=== PATIENT | male | born 1940 | race Caucasian/White ===

== ENCOUNTER 2017-08-11 07:39 | Day surgery (SDC) | payer OTHER ==
[2017-08-11] MEDS ORDERED: BUPIVACAINE 0.25% PF 10 ML VIAL ONE (08:21)
[2017-08-11] MEDS ORDERED: TETRACAINE HCL 0.5% 2ML OPTH ONE (08:21)
[2017-08-11] MEDS ORDERED: NA CHLORIDE 0.9% 500 ML ONE (08:21)
[2017-08-11] MEDS ORDERED: CYCLOPENTOLATE 1% OPTH 2 ML ONE (08:21)
[2017-08-11] MEDS ORDERED: LIDOCAINE 2% MPF 5 ML VIAL ONE (08:21)
[2017-08-11] MEDS ORDERED: PHENYLEPHRINE 10% OPTH 5ML ONE (08:22)
[2017-08-11] MEDS ORDERED: EPINEPHRINE/PF 1 MG/ML AMP ONE (08:27)
[2017-08-11] MEDS ORDERED: NS 0.9% VIAL 10 ML ONE (08:27)
[2017-08-11] MEDS ORDERED: DUOVISC 1 KIT OPTH ONE (08:28)
[2017-08-11] MEDS ORDERED: BALANCED SALT IRRIG PLAIN 500 ML BTL IRR ONE (08:28)
[2017-08-11] MEDS ORDERED: LIDOCAINE 1% MPF 2 ML AMPULE ONE (08:29)
[2017-08-11] MEDS ORDERED: MOXIFLOXACIN HCL 10 DROPS/ML **OR USE OPTH ONE (08:29)
[2017-08-11] MEDS ORDERED: CYCLOPENTOLATE 1% OPTH 2 ML OPTH ONE ×2 (08:33→08:38)
[2017-08-11] MEDS ORDERED: PHENYLEPHRINE 10% OPTH 5ML OPTH ONE ×2 (08:33→08:38)
[2017-08-11 08:40] VITALS: O2SAT 97
[2017-08-11] MEDS ORDERED: LIDOCAINE HCL/PF 3.5% OPTH GEL ONE (08:52)
[2017-08-11] MEDS ORDERED: BSS OPTHALMIC SOL 15 ML BOT OPTH ONE (09:14)
[2017-08-11] MEDS ORDERED: MIDAZOLAM HCL 2 MG/2 ML INJ ONE (10:06)
[2017-08-11] MEDS ORDERED: FENTANYL CITR 100 MCG/2 ML ONE (10:06)
--- NOTE | 2017-08-11 10:39 | P.BOP ---
Preoperative diagnosis: Nuclear sclerotic cataract OS Postoperative diagnosis: Same Primary procedure: Phacoemulsification with IOL OS Estimated blood loss: None Anesthesia: Local (Topical with anesthesia for cataract surgery) Complications: None Implants: ZCB00 +19.5 Transferred to: Other (Day surgery) Condition: Good
[2017-08-11 10:50] VITALS: BP 149/61; TEMP 97.9
--- NOTE | 2017-08-11 21:18 | OP ---
Date of Procedure: 08/11/2017 Surgeon: Edith Bush MD Anesthesiologist: Chadwick Benjamin CRNA, and Jayson Roman M.D. Preoperative Diagnosis: Nuclear sclerotic cataract, left eye. Operation Performed: Phacoemulsification with intraocular lens implant, left eye. Anesthesia: Per cataract surgery. Complications: None. Description Of Procedure: In the operating room the patient was prepped and draped in the usual ster ile fashion for ophthalmic surgery. A lid speculum was placed in the left eye. Two paracentesis sit es were made superiorly and inferiorly in the limbal cornea. Viscoat was placed in the anterior madhu shannan and a crescent blade was used to make a corneal groove and tunnel, and a keratome was used to ent er the anterior chamber. Provisc was placed in the anterior chamber and a 360 degree capsulotomy was performed with a cystitome. The lens was hydrodissected with BSS and rotated freely. The lens was removed with a stop and chop technique. 9.1 Phaco CDE was used to remove the lens. Residual cortex was removed with the irrigation and aspiration. Provisc was placed in the capsular bag. A ZCB00+ 19 .5 Diopter lens was placed in the capsular bag without complications. Irrigation and aspiration were used to remove residual viscoelastic. The paracentesis sites were hydrated with BSS. The wound and paracentesis sites were inspected and found to be watertight. Vigamox 0.07 cc was placed intracamer ally at the end of the procedure. The eye was irrigated with balanced salt solution. The eye was pa tched with a soft cotton patch and Leung metal shield. The patient was returned to day surgery in good condition. Comments: Akten was placed in the eye in Day Surgery and irrigated out of the eye with BSS in the OR . Preservative-free 1% lidocaine was placed in the anterior chamber. This was followed by 1:5000 ep inephrine. Both were placed prior to Viscoat. Discharge Instructions: Mr. Barraza is discharged to home in good condition and is to follow up with Jenifer Bush in the morning. SEAN/NOMI Voice ID: [id number] Report ID: [id number]
== END 2017-08-11 11:08 | disposition home or self-care (01) ==
LOC: OR 07:39
PROVIDERS: ATTEND Ophthalmology Retina Specialist
PROC: 08RK3JZ Replacement of Left Lens with Synthetic Substitute, Percutaneous Approach (ICD-10-PCS; principal; 2017-08-11 09:15)
DX: H25.12 Age-related nuclear cataract, left eye (principal); H43.812 Vitreous degeneration, left eye; H46.9 Unspecified optic neuritis; E11.9 Type 2 diabetes mellitus without complications; I10 Essential (primary) hypertension; K21.9 Gastro-esophageal reflux disease without esophagitis; Z88.0 Allergy status to penicillin; Z85.89 Personal history of malignant neoplasm of other organs and systems; Z90.49 Acquired absence of other specified parts of digestive tract; Z83.3 Family history of diabetes mellitus
CPT/HCPCS: 66984; 82962; J0171; J2001; J2250; J3010

== ENCOUNTER 2017-09-08 06:50 | Day surgery (SDC) | payer OTHER ==
[2017-09-08] MEDS ORDERED: BUPIVACAINE 0.25% PF 10 ML VIAL ONE (06:55)
[2017-09-08] MEDS ORDERED: CYCLOPENTOLATE 1% OPTH 2 ML ONE (06:55)
[2017-09-08] MEDS ORDERED: LIDOCAINE 2% MPF 5 ML VIAL ONE (06:55)
[2017-09-08] MEDS ORDERED: LIDOCAINE HCL/PF 3.5% OPTH GEL ONE (06:56)
[2017-09-08] MEDS ORDERED: PHENYLEPHRINE 10% OPTH 5ML ONE (06:56)
[2017-09-08] MEDS ORDERED: TETRACAINE HCL 0.5% 2ML OPTH ONE (06:56)
[2017-09-08] MEDS ORDERED: NA CHLORIDE 0.9% 500 ML ONE (06:56)
[2017-09-08] MEDS: PHENYLEPHRINE 10% OPTH 5ML OPTH ONE ×2 (07:10→07:15)
[2017-09-08] MEDS: CYCLOPENTOLATE 1% OPTH 2 ML OPTH ONE ×2 (07:10→07:15)
[2017-09-08 07:11] VITALS: O2SAT 97
[2017-09-08] MEDS ORDERED: NS 0.9% VIAL 10 ML ONE (07:59)
[2017-09-08] MEDS ORDERED: EPINEPHRINE/PF 1 MG/ML AMP ONE ×2 (07:59→08:03)
[2017-09-08] MEDS ORDERED: BALANCED SALT IRRIG PLAIN 500 ML BTL IRR ONE (08:00)
[2017-09-08] MEDS ORDERED: DUOVISC 1 KIT OPTH ONE (08:01)
[2017-09-08] MEDS ORDERED: MOXIFLOXACIN HCL 10 DROPS/ML **OR USE OPTH ONE (08:01)
[2017-09-08] MEDS ORDERED: LIDOCAINE 1% MPF 2 ML AMPULE ONE (08:01)
[2017-09-08] MEDS ORDERED: FENTANYL CITR 100 MCG/2 ML ONE (08:05)
[2017-09-08] MEDS ORDERED: MIDAZOLAM HCL 2 MG/2 ML INJ ONE (08:05)
[2017-09-08] MEDS ORDERED: BSS OPTHALMIC SOL 15 ML BOT OPTH ONE (08:12)
--- NOTE | 2017-09-08 09:04 | P.BOP ---
Preoperative diagnosis: Nuclear sclerotic cataract OD Postoperative diagnosis: Same Primary procedure: Phacoemulsification with IOL OD Estimated blood loss: None Anesthesia: Local (Topical with anesthesia for cataract surgery) Complications: None Implants: ZCB00 +19.5 Transferred to: Other (Day surgery) Condition: Good
[2017-09-08 09:15] VITALS: BP 146/71; TEMP 96.7
--- NOTE | 2017-09-08 20:25 | OP ---
Date of Procedure: 09/08/2017 Surgeon: Edith Bush MD Anesthesiologist: 1. Mika Alvarez CRNA. 2. Jayson Roman M.D. Preoperative Diagnosis: Nuclear sclerotic cataract, OD (right eye). Operation Performed: Phacoemulsification with intraocular lens implant, OD( right eye). Anesthesia: Per cataract surgery. Complications: None. Description Of Procedure: In the operating room the patient was prepped and draped in the usual sterile fashion for ophthalmic surgery. A lid speculum was placed in the OD. Two paracentesis sites were made superiorly and inferiorly in the limbal cornea. Viscoat was placed in the anterior chamber and a crescent blade was used to make a corneal groove and tunnel, and a keratome was used to enter the anterior chamber. Provisc was placed in the anterior chamber and a 360 degree capsulotomy was performed with a cystitome. The lens was hydrodissected with BSS and rotated freely. The lens was removed with a stop and chop technique. A 16.50 Phaco CDE was used to remove the lens. Residual cortex was removed with the irrigation and aspiration. Provisc was placed in the capsular bag. A ZCB00+ 19.5 lens was placed in the capsular bag without complications. Irrigation and aspiration was used to remove residual viscoelastic. The paracentesis sites were hydrated with BSS. The wound and paracentesis sites were inspected and found to be watertight. Vigamox 0.07 cc was placed intracamerally at the end of the procedure. The eye was irrigated with balanced salt solution. The eye was patched with a soft cotton patch and Leung metal shield. The patient was returned to day surgery in good condition. Comments: Akten was placed in the eye in Day Surgery and then irrigated out of the eye with BSS in the OR. Preservative-free 1% lidocaine was placed in the anterior chamber. This was followed by 1:5000 epinephrine. Both were placed prior to Viscoat. Discharge Instructions: Mr. Barraza is discharged to home in good condition and is to follow up with Dr. Bush in the morning. SEAN/NOMI Voice ID: [id number] Report ID: [id number] [facility]
== END 2017-09-08 09:35 | disposition home or self-care (01) ==
LOC: OR 06:50
PROVIDERS: ATTEND Ophthalmology Retina Specialist
PROC: 08RJ3JZ Replacement of Right Lens with Synthetic Substitute, Percutaneous Approach (ICD-10-PCS; principal; 2017-09-08 08:30)
DX: H25.11 Age-related nuclear cataract, right eye (principal); H46.9 Unspecified optic neuritis; H43.812 Vitreous degeneration, left eye; H47.20 Unspecified optic atrophy; E11.9 Type 2 diabetes mellitus without complications; K21.9 Gastro-esophageal reflux disease without esophagitis; N40.0 Benign prostatic hyperplasia without lower urinary tract symptoms; Z88.0 Allergy status to penicillin; Z85.89 Personal history of malignant neoplasm of other organs and systems; Z90.49 Acquired absence of other specified parts of digestive tract; Z83.3 Family history of diabetes mellitus
CPT/HCPCS: 66984; 82962; J0171 ×2; J2001; J2250; J3010

== ENCOUNTER 2023-10-27 21:28 | Inpatient (IN) | payer OTHER ==
--- OUTSIDE RECORDS SUMMARY | 2023-10-27 21:31 | XMS REPORT | Continuity of Care Document ---
Author Name Unknown Address [address] [facility] [address] [place] [address] [facility] Address [address] [facility] [address] [place] [address] Care Team Providers Care Bathhouse Attendant Name Role Phone RENNY_Morales Attending Clinician Unavailable Anais Lawson Attending Clinician [phone] Alphonso_Ayad Attending Clinician Unavailable A_Byrd Attending Clinician Unavailable RENNY_Morales Admitting Clinician Unavailable Alphonso_S Admitting Clinician Unavailable A_Byrd Admitting Clinician Unavailable Payers Payer Name Policy Type Policy Number Effective Date Expirati on Date Source [facility] (MEDICARE REPLACEMENT/[place]VANT[place] GE - PPO) [id number] [facility] (MEDICARE REPLACEMENT/ADVANTA GE - PPO) [id number] 2021 00:00:00 Problems Condition Name Condition Details Condition Category Status Onset Date Resolution Date Last Treatment Date Treating Clinician Comments Source Diabetes mellitus Diabetes Mellitus Problem Active 08-08 00:00: 00 [facility] Hypertensi ve disorder Hypertensi ve Disorder Problem Active 08-08 00:00: 00 [facility] Chronic constipati on Chronic Constipati on Problem Active 05-27 00:00: 00 [facility] Prostatiti s Prostatiti s Problem Active 16 00:00: 00 [facility] Type II diabetes mellitus uncontroll ed Type II Diabetes Mellitus Uncontroll ed Problem Active 08-24 00:00: 00 [facility] Anxiety about loss of memory Anxiety about Loss of Memory Problem Active 07-16 00:00: 00 [facility] Benign essential hypertensi on Benign Essential Hypertensi on Problem Active 07-16 00:00: 00 [facility] Acute low back pain Acute Low Back Pain Problem Active 08-12 00:00: 00 [facility] 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 Nutritiona l disorder Nutritiona l Disorder Problem Active [facility] Impotence Impotence Problem [facility] Depressive disorder Depressive Disorder Problem Active [facility] Peripheral nerve disease Peripheral Nerve Disease Problem Active [facility] Chronic esophagiti s Chronic Esophagiti s Problem Active [facility] Benign prostatic hyperplasi a Benign Prostatic Hyperplasi a Problem Active [facility] Difficulty swallowing Difficulty Swallowing Problem Active [facility] Chronic diarrhea Chronic Diarrhea Problem Active [facility] Elevated blood pressure Elevated Blood Pressure Problem Active [facility] Allergies, Adverse Reactions, Alerts Allergy Name Allergy Type Status Severity Reaction(s) Onset Date Inactive Date Treating Clinician Comments Source Januvia Allergy to substanc e Active Diarrhea [facility] PENICILL INS Allergy to substanc e Active [facility] Social History Smoking Status Start Date Stop Date Source Never Smoker [facility] Medications Ordered Medication Name Filled Medication Name Start Date Stop Date Current Medication? Ordering Clinician Indication Dosage Frequency Signature (SIG) Comments Components Source ascorbic acid (vitamin C) 500 mg tablet TAKE 4 TABLETS BY MOUTH EVERY 24 HOURS ascorbic acid (vitamin C) 500 mg tablet TAKE 4 TABLETS BY MOUTH EVERY 24 HOURS No ascorbic acid (vitamin C) 500 mg tablet TAKE 4 TABLETS BY MOUTH EVERY 24 HOURS [facility] finasteride 5 mg tablet TAKE 1 TABLET BY MOUTH EVERY DAY finasteride 5 mg tablet TAKE 1 TABLET BY MOUTH EVERY DAY No finasterid e 5 mg tablet TAKE 1 TABLET BY MOUTH EVERY DAY [facility] glipizide ER 2.5 mg tablet, extended release 24 hr Take 1 tablet every day by oral route for 30 days. glipizide ER 2.5 mg tablet, extended release 24 hr Take 1 tablet every day by oral route for 30 days. No 1 Q1D glipizide ER 2.5 mg tablet, extended release 24 hr Take 1 tablet every day by oral route for 30 days. [facility] lisinopril 10 mg tablet TAKE 1 TABLET BY MOUTH EVERY DAY lisinopril 10 mg tablet TAKE 1 TABLET BY MOUTH EVERY DAY No lisinopril 10 mg tablet TAKE 1 TABLET BY MOUTH EVERY DAY [facility] tamsulosin 0.4 mg capsule TAKE 1 CAPSULE BY MOUTH EVERY DAY tamsulosin 0.4 mg capsule TAKE 1 CAPSULE BY MOUTH EVERY DAY No tamsulosin 0.4 mg capsule TAKE 1 CAPSULE BY MOUTH EVERY DAY [facility] tamsulosin 0.4 mg capsule TAKE 1 CAPSULE BY MOUTH EVERY DAY tamsulosin 0.4 mg capsule TAKE 1 CAPSULE BY MOUTH EVERY DAY No tamsulosin 0.4 mg capsule TAKE 1 CAPSULE BY MOUTH EVERY DAY [facility] OneTouch Delica Plus Lancet 33 gauge USE DIRECTED OneTouch Delica Plus Lancet 33 gauge USE DIRECTED No OneTouch Delica Plus Lancet 33 gauge USE DIRECTED [facility] OneTouch Ultra Test strips TEST DIRECTED OneTouch Ultra Test strips TEST DIRECTED No OneTouch Ultra Test strips TEST DIRECTED [facility] OneTouch Ultra2 Meter TEST TWICE DAILY OneTouch Ultra2 Meter TEST TWICE DAILY No OneTouch Ultra2 Meter TEST TWICE DAILY [facility] sertraline 50 mg tablet Take 1 tablet every day by oral route for 90 days. sertraline 50 mg tablet Take 1 tablet every day by oral route for 90 days. No 1 Q1D sertraline 50 mg tablet Take 1 tablet every day by oral route for 90 days. [facility] famotidine 20 mg tablet Take 1 tablet twice a day by oral route for 90 days. famotidine 20 mg tablet Take 1 tablet twice a day by oral route for 90 days. No 1 BID famotidine 20 mg tablet Take 1 tablet twice a day by oral route for 90 days. [facility] Flonase Allergy Relief 50 mcg/actuati on nasal spray,suspe nsion [place] 1 spray every day by intranasal route for 90 days. Flonase Allergy Relief 50 mcg/actuati on nasal spray,suspe nsion [place] 1 spray every day by intranasal route for 90 days. No 1spray( s) Q1D Flonase Allergy Relief 50 mcg/actuat ion nasal spray,susp ension [place] 1 spray every day by intranasal route for 90 days. [facility] meclizine 25 mg tablet Take 1 tablet 3 times a day by oral route as needed, for dizzness. meclizine 25 mg tablet Take 1 tablet 3 times a day by oral route as needed, for dizzness. No 1 TID meclizine 25 mg tablet Take 1 tablet 3 times a day by oral route as needed, for dizzness. [facility] Medrol (Christian) 4 mg tablets in a dose pack Take 1 dose pk every day by oral route as directed. Medrol (Christian) 4 mg tablets in a dose pack Take 1 dose pk every day by oral route as directed. No 1dose pk(s) Q1D Medrol (Christian) 4 mg tablets in a dose pack Take 1 dose pk every day by oral route as directed. [facility] divalproex 250 mg tablet,ermelinda yed release Take 1 tablet every day by oral route for 90 days. divalproex 250 mg tablet,ermelinda yed release Take 1 tablet every day by oral route for 90 days. No 1 Q1D divalproex 250 mg tablet,del ayed release Take 1 tablet every day by oral route for 90 days. [facility] Vital Signs Vital Name Observation Time Observation Value Comments S ource BP Diastolic 2023-10-22 00:00:00 52 mm[Hg] [facility] BP Systolic 2023-10-22 00:00:00 110 mm[Hg] [facility] Body Weight 2023-10-22 00:00:00 2847 [oz_av] [facility] BP Diastolic 2023-06-26 00:00:00 54 mm[Hg] [facility] BP Systolic 2023-06-26 00:00:00 180 mm[Hg] [facility] Body Weight 2023-06-26 00:00:00 2880 [oz_av] [facility] Body Weight 2023-03-28 00:00:00 2965 [oz_av] [facility] Body Weight 2023-02-26 00:00:00 3018 [oz_av] [facility] BP Diastolic 2022-09-03 00:00:00 58 mm[Hg] [facility] BP Systolic 2022-09-03 00:00:00 165 mm[Hg] [facility] Body Weight 2022-09-03 00:00:00 3170.4 [oz_av] [facility] BP Diastolic 2022-06-06 00:00:00 55 mm[Hg] [facility] BP Systolic 2022-06-06 00:00:00 140 mm[Hg] [facility] Body Weight 2022-06-06 00:00:00 3184 [oz_av] [facility] BP Diastolic 2021-12-18 00:00:00 54 mm[Hg] [facility] BP Systolic 2021-12-18 00:00:00 150 mm[Hg] [facility] Body Weight 2021-12-18 00:00:00 3224 [oz_av] [facility] BP Diastolic 2021-10-24 00:00:00 73 mm[Hg] [facility] BP Systolic 2021-10-24 00:00:00 111 mm[Hg] [facility] Body Weight 2021-10-24 00:00:00 3456 [oz_av] [facility] BP Diastolic 2021-08-08 00:00:00 53 mm[Hg] [facility] BP Systolic 2021-08-08 00:00:00 119 mm[Hg] [facility] Body Weight 2021-08-08 00:00:00 3184 [oz_av] [facility] BP Diastolic 2021-06-25 00:00:00 76 mm[Hg] [facility] Height 2021-06-25 00:00:00 68 [in_i] [facility] BMI (Body Mass Index) 2021-06-25 00:00:00 28.7 kg/m2 [facility] BP Systolic 2021-06-25 00:00:00 132 mm[Hg] [facility] Body Weight 2021-06-25 00:00:00 3024 [oz_av] [facility] Height 2021-06-21 00:00:00 68 [in_i] [facility] BMI (Body Mass Index) 2021-06-21 00:00:00 30.4 kg/m2 [facility] Body Weight 2021-06-21 00:00:00 3200 [oz_av] [facility] BP Diastolic 2020-09-21 00:00:00 60 mm[Hg] [facility] Height 2020-09-21 00:00:00 68 [in_i] [facility] BMI (Body Mass Index) 2020-09-21 00:00:00 31.2 kg/m2 [facility] BP Systolic 2020-09-21 00:00:00 135 mm[Hg] [facility] Body Weight 2020-09-21 00:00:00 3284.8 [oz_av] [facility] BP Diastolic 2019-05-27 00:00:00 72 mm[Hg] [facility] Height 2019-05-27 00:00:00 68 [in_i] [facility] BMI (Body Mass Index) 2019-05-27 00:00:00 33.1 kg/m2 [facility] BP Systolic 2019-05-27 00:00:00 166 mm[Hg] [facility] Body Weight 2019-05-27 00:00:00 3488 [oz_av] [facility] BP Diastolic 2019-03-29 00:00:00 64 mm[Hg] [facility] Height 2019-03-29 00:00:00 68 [in_i] [facility] BMI (Body Mass Index) 2019-03-29 00:00:00 32.8 kg/m2 [facility] BP Systolic 2019-03-29 00:00:00 130 mm[Hg] [facility] Body Weight 2019-03-29 00:00:00 3446.4 [oz_av] [facility] BP Diastolic 2019-01-04 00:00:00 78 mm[Hg] [facility] Height 2019-01-04 00:00:00 68 [in_i] [facility] BMI (Body Mass Index) 2019-01-04 00:00:00 33 kg/m2 [facility] BP Systolic 2019-01-04 00:00:00 143 mm[Hg] [facility] Body Weight 2019-01-04 00:00:00 3472 [oz_av] [facility] BP Diastolic 2018-11-26 00:00:00 70 mm[Hg] [facility] Height 2018-11-26 00:00:00 68 [in_i] [facility] BMI (Body Mass Index) 2018-11-26 00:00:00 33 kg/m2 [facility] BP Systolic 2018-11-26 00:00:00 167 mm[Hg] [facility] Body Weight 2018-11-26 00:00:00 3472 [oz_av] [facility] BP Diastolic 2018-08-24 00:00:00 63 mm[Hg] [facility] Height 2018-08-24 00:00:00 68 [in_i] [facility] BMI (Body Mass Index) 2018-08-24 00:00:00 32.8 kg/m2 [facility] BP Systolic 2018-08-24 00:00:00 151 mm[Hg] [facility] Body Weight 2018-08-24 00:00:00 3456 [oz_av] [facility] BP Diastolic 2018-07-20 00:00:00 68 mm[Hg] [facility] Height 2018-07-20 00:00:00 68 [in_i] [facility] BMI (Body Mass Index) 2018-07-20 00:00:00 33.3 kg/m2 [facility] BP Systolic 2018-07-20 00:00:00 162 mm[Hg] [facility] Body Weight 2018-07-20 00:00:00 3504 [oz_av] [facility] BP Diastolic 2018-07-16 00:00:00 75 mm[Hg] [facility] Height 2018-07-16 00:00:00 68 [in_i] [facility] BMI (Body Mass Index) 2018-07-16 00:00:00 33.3 kg/m2 [facility] BP Systolic 2018-07-16 00:00:00 208 mm[Hg] [facility] Body Weight 2018-07-16 00:00:00 3504 [oz_av] [facility] Procedures Procedure Date / Time Performed Performing Clinician Source XR, lumbosacral spine, 2 or 3 view 2022-06-06 00:00:00 [facility] Cholecystectomy 2014-05-12 00:[facility] 1961-05-[facility] 00:00[facility]00 [facility] Encounters Start Date/Time End Date/Time Encounter Type Admission Type Attending Clinicians Care Facility Care Department Encounter ID Source 2023-10-22 00:00:00 2023-10-22 00:00:00 KERWIN Rizvi, RAKER BUFFING WHEEL, AIRCRAFT CAPTAIN-C: [address], [address] [place] [address] , Ph. [facility], Anais Lawson MSN, AIRCRAFT CAPTAIN-C [id number] 611 [facility] 2023-06-26 00:00:00 2023-06-26 00:00:00 KERWIN Rizvi, RAKER BUFFING WHEEL, AIRCRAFT CAPTAIN-C: Alexei Baker, [address], [address], [place] [address] , Ph. [facility], Anais Lawson, MSN, AIRCRAFT CAPTAIN-C [id number] [facility] 2023-04-17 00:00:00 2023-04-17 00:00:00 Outpatient SISSON_C [facility] [id number] [facility] 2023-04-03 00:00:00 2023-04-03 00:00:00 Outpatient SISSON_C [facility] [id number] [facility] 2023-03-28 00:00:00 2023-03-28 00:00:00 Anais Lawson, MSN, RAK[employer]ING [employer]EL, AIRCRAFT CAPTAIN-C: [address], [address], [place] [address] , Ph. [facility], Anais Lawson, MSN, AIRCRAFT CAPTAIN-C [id number] [facility] 2023-02-26 00:00:00 2023-02-26 00:00:00 Outpatient SISSON_C [facility] [id number] [facility] 2023-02-26 00:00:00 2023-02-26 00:00:00 Outpatient SISSON_C [facility] [id number] [facility] 2023-02-26 00:00:00 2023-02-26 00:00:00 Anais Lawson, MSN, RAK[employer], AIRCRAFT CAPTAIN-C: [address], [address], [place] [address] , Ph. [facility], Anais Lawson, MSN, AIRCRAFT CAPTAIN-C [id number] [facility] 2022-09-03 00:00:00 2022-09-03 00:00:00 Anais Renny, MSN, RAK[employer], AIRCRAFT CAPTAIN-C: [address], [place] [address] , Ph. [facility], Anais Lawson, MSN, AIRCRAFT CAPTAIN-C [id number] [facility] 2022-08-28 00:00:00 2022-08-28 00:00:00 Outpatient SISSON_C [facility] [id number] [facility] 2022-06-06 00:00:00 2022-06-06 00:00:00 Outpatient SISSON_C [facility] [id number] [facility] 2022-06-06 00:00:00 2022-06-06 00:00:00 Anais Lawson MSN, RAK[employer], AIRCRAFT CAPTAIN-C: [address], [place] [address] , Ph. [facility], Anais Lawson, MSN, AIRCRAFT CAPTAIN-C [id number] [facility] 2021-12-18 00:00:00 2021-12-18 00:00:00 Outpatient SISSON_C [facility] [id number] [facility] 2021-12-18 00:00:00 2021-12-18 00:00:00 Outpatient Anais Lawson [facility] [id number] 2021-12-18 00:00:00 2021-12-18 00:00:00 Anais Lawson, MSN, RAK[employer] BU[employer]ING [employer]EL, AIRCRAFT CAPTAIN-C: [address], [address], [place] [address] , Ph. [facility], Anais Lawson, MSN, AIRCRAFT CAPTAIN-C [id number] [facility] 2021-10-24 04:55:00 2021-10-24 04:55:00 Outpatient SISSON_C [facility] [id number] [facility] 2021-10-24 00:00:00 2021-10-24 00:00:00 Outpatient Anais Lawson [facility] [id number] 2021-10-24 00:00:00 2021-10-24 00:00:00 Anias Lawson, MSN, RAK[employer] BU[employer]ING WHEEL, AIRCRAFT CAPTAIN-C: [address]ac [address], [place] [address] , Ph. [facility], Anais Lawson MSN, AIRCRAFT CAPTAIN-C [id number] [facility] 2021-08-28 10:05:00 2021-08-28 10:05:00 Outpatient SISSON_C [facility] [id number] [facility] 2021-08-08 12:46:00 2021-08-08 12:46:00 Outpatient SISSON_C [facility] [id number] [facility] 2021-08-08 00:00:00 2021-08-08 00:00:00 Outpatient Anais Lawson [facility] [id number] 2021-08-08 00:00:00 2021-08-08 00:00:00 Anais Lawson, MSN, RAK[employer] BUFFING WHEEL, AIRCRAFT CAPTAIN-C: [address], [place] [address] , Ph. [facility], Anais Lawson, MSN, AIRCRAFT CAPTAIN-C [id number] [facility] 2021-07-03 03:55:00 2021-07-03 03:55:00 [facility] 022 [facility] 2021-06-25 00:00:00 2021-06-25 00:00:00 Concetta Werner MD: [address] [facility] [address], [place] [address] , Ph. Zuniga_S [facility] [address] [facility] 2021-06-21 00:00:00 2021-06-21 00:00:00 Concetta Werner MD: [address] [facility] [address] [address] , Ph. A_Byrd [facility] [address] [facility] 2021-04-04 12:12:00 2021-04-04 12:12:00 Outpatient SISSON_C [facility] [id number] [facility] 2021-04-03 04:56:00 2021-04-03 04:56:00 Outpatient SISSON_C [facility] [id number] [facility] 2021-04-02 10:28:00 2021-04-02 10:28:00 Outpatient SISSON_C [facility] [id number] [facility] 2021-04-02 00:00:00 2021-04-02 00:00:00 Anais Lawson, KERWIN, RAKER BUFFING WHEEL, AIRCRAFT CAPTAIN-C: [address], [address], [place] [address] , Ph. [facility], KERWIN Rizvi, AIRCRAFT CAPTAIN-C [id number] [facility] 2020-09-22 12:27:00 2020-09-22 12:27:00 Outpatient A_Byadina [facility] 14 [facility] 2020-09-21 00:00:00 2020-09-21 00:00:00 Lucio Amin MD: [address], [place] [address] , Ph. ARoyer [facility] [address] [facility] 2020-03-29 02:27:00 2020-03-29 02:27:00 Outpatient A_Byadina [facility] [id number] [facility] 2019-05-27 00:00:00 2019-05-27 00:00:00 Lucio Amin MD: [address], [place] [address] , Ph. ARoyer [facility] [address] [facility] 2019-03-29 00:00:00 2019-03-29 00:00:00 Amy Bolaños, CHIEF DRAFTER: [address], [place] [address] , Ph. [facility] [address] [facility] 2019-01-04 00:00:00 2019-01-04 00:00:00 Amy Bolaños, CHIEF DRAFTER: [address], [address], [place] [address] , Ph. [facility] [address] [facility] 2018-11-26 00:00:00 2018-11-26 00:00:00 Lucio Amin MD: [address], [address], [place] [address] , Ph. [facility] 7[address] [facility] 2018-08-24 00:00:00 2018-08-24 00:00:00 Lucio Amin MD: [address], [address], [place] [address] , Ph. [facility] 04[address] [facility] 2018-07-20 00:00:00 2018-07-20 00:00:00 Lucio Amin MD: [address], [address], [place] [address] , Ph. [facility] 03[address] [facility] 2018-07-16 00:00:00 2018-07-16 00:00:00 Lucio Amin MD: [address], [address], [place] [address] , Ph. [facility] [address] [facility] Results Test Description Test Time Test Comments Results Result Co mments Source [facility] - [id number] 07:50:00* Test Item Value Reference Range Interpretation Comme nts Color of Urine by Auto (test code = 41239-6) yellow Appearance of Urine (test code = 5767-9) SL cloudy clear A Glucose [Presence] in Urine by Automated test strip (test code = 62082-0) =4+ (1000 negative Bilirubin.total [Mass/volume] in Urine (test code = 1978-6) negative negative Ketones [Mass/volume] in Urine by Automated test strip (test code = 47957-2) trace negative Specific gravity of Urine by Automated test strip (test code = 24626-0) 1.019 1.003-1.030 blood urine (test code = blood urine) =3 negative H pH of Urine (test code = 2756-5) 5.500 5-9 protein urine (UA) (test code = protein urine (UA)) =1+ (50 negative H Urobilinogen [Presence] in Urine (test code = 05700-1) normal 0.2-1.0 Nitrite [Presence] in Urine by Test strip (test code = 5802-4) negative negative Leukocyte esterase [Presence] in Urine by Automated test strip (test code = 71127-9) =1 negative H Erythrocytes [#/volume] in Urine by Automated count (test code = 798-9) =15-19 0-5 H Leukocytes [#/area] in Urine sediment by Automated count (test code = 89038-8) =11-14 0-5 H Epithelial cells [Presence] in Urine sediment by Light microscopy (test code = 61871-2) =1-5 0-5 Bacteria identified in Urine by Culture (test code = 630-4) none detected none detect Casts [#/area] in Urine sediment by Automated count (test code = 04876-3) =6-10 none detect H urine culture added? (test code = urine culture added?) yes Crystals [Presence] in Urine by Automated (test code = 74345-6) ammonium biurate 1 none detect A Yeast [Presence] in Urine by Automated (test code = 82993-6) none seen none detect [facility][id number] 06:05:00* Test Item Value Reference Range Interpretation Comme nts prothrombin time (test code = prothrombin time) 9.9 seconds 10.3-12.3 L INR in Blood by Coagulation assay (test code = 76617-1) <0.94 [facility] A[facility]c [Mass/volume] in [id number] 06:05:00 * Test Item Value Reference Range Interpretation Comme nts Hemoglobin A1c [Mass/volume] in Blood (test code = 39152-3) 8.5 % 4.0-6.0 H [facility] Group[facility]/[id number] 06:05:00* Test Item Value Reference Range Interpretation Comme nts prothrombin time (test code = prothrombin time) 9.9 seconds 10.3-12.3 L INR in Blood by Coagulation assay (test code = 94981-0) <0.94 [facility] A1c [Mass/volume] in [id number] 06:05:00 * Test Item Value Reference Range Interpretation Comme nts Hemoglobin A1c [Mass/volume] in Blood (test code = 01764-6) 8.5 % 4.0-6.0 [facility] W Auto Differential panel - [id number] 10:00:00 * Test Item Value Reference Range Interpretation Comme nts white blood count (test code = white blood count) 5.8 K/uL 4.0-12.3 red blood count (test code = red blood count) 4.53 M/uL 3.80-5.80 hemoglobin (test code = hemoglobin) 13.2 g/dL 11.7-17.2 hematocrit (test code = hematocrit) 42.9 % 35.0-51.0 Erythrocyte mean corpuscular volume [Entitic volume] (test code = 07491-7) 94.7 fL 83-100 Erythrocyte mean corpuscular hemoglobin [Entitic mass] (test code = 51163-5) 29.1 pg 26.8-33.4 mean corpuscular HGB conc (t est code = mean corpuscular HGB conc) 30.8 g/dL 30-35 red cell distribution width (test code = red cell distribution width) 13.4 % 12.0-14.0 platelet count (test code = platelet count) 126 K/uL 175-450 L mean platelet volume (test c ode = mean platelet volume) 12.9 fL 9.4-12.6 H Neutrophils.segmented/100 leukocytes in Blood (test code = 27935-4) 68.9 % 44.7-82.4 Ig% (test code = Ig%) 0.3 % 0.0-0.4 lymphocyte% (test code = lymphocyte%) 19.6 % 10.0-50.0 Monocytes/100 leukocytes in Blood by Automated count (test code = 5905-5) 8.1 % 3.9-13.4 Eosinophils/100 leukocytes i n Blood by Automated count (test code = 713-8) 2.6 % 0.0-6.4 Basophils/100 leukocytes in Unspecified specimen (test code = 08056-0) 0.5 % 0.2-1.2 absolute neutrophil count (t est code = absolute neutrophil count) 3.98 K/uL 1.78-5.38 Ig# (test code = Ig#) 0.0 K/uL 0.0-0.03 Lymphocytes [#/volume] in Unspecified specimen by Automated count (test code = 25907-1) 1.1 K/uL 1.32-3.57 L mono # (test code = mono #) 0.47 K/uL 0.30-0.82 eos # (test code = eos #) 0.15 K/uL 0.04-0.54 basophil # (test code = baso oliver #) 0.03 K/uL 0.01-0.08 NRBC% (test code = NRBC%) 0 /100 WBC 0-0.2 NRBC# (test code = NRBC#) 0 K/uL [facility], [id number] 10:00:00 NeutrophilsBandLymphocyteAtypical LymphMonocyteEosinophilBasophilMyelocytePlatelet EstimatePlateletMorphologyToxic GranulationMaSinging River GulfportMicroalbumin [Mass/volume] in [id number] 10:00:00* Test Item Value Reference Range Interpretation Comme nts microalbumin random (test co de = microalbumin random) 83.9 mg/L 0-20 H [facility] MississippiHemoglobin A1c [Mass/volume] in [id number] 10:00:00 * Test Item Value Reference Range Interpretation Comme nts Hemoglobin A1c in Blood ([facility] t code = 50389-7) 7.5 % 4.0-6.0 H [facility] MississippiComprehensive metabolic 2000 panel - Serum or Plasma 2018-11-23 10:00:00* Test Item Value Reference Range Interpretation Comme nts Glucose [Mass/volume] in Ser um or Plasma (test code = 2345-7) 286 mg/dL 82-115 H Urea nitrogen [Mass/volume] in Serum or Plasma (test code = 3094-0) 21 mg/dL 8-23 Osmolality of Serum or Plasm a (test code = 2692-2) 293 280-300 creatinine (test code = creatinine) 1.5 mg/dL 0.70-1.20 H glomerular filtration rate ( test code = glomerular filtration rate) 45.03 L Urea nitrogen/Creatinine [Ma ss Ratio] in Serum or Plasma (test code = 3097-3) 14.0 12-20 sodium level (test code = so dium level) 140 mmol/L 135-145 potassium level (test code = potassium level) 4.6 mmol/L 3.5-5.2 chloride level (test code = chloride level) 108 mmol/L 98-108 CO2 (test code = CO2) 21 mmol/L 21-32 anion gap (test code = anion gap) 15.6 mEq/L 12-20 calcium level (test code = c alcium level) 9.9 mg/dL 8.8-10.2 total protein (test code = t otal protein) 7.0 g/dL 6.6-8.7 albumin (test code = albumin) 4.1 g/dL 3.5-5.2 globulin (test code = globulin) 2.9 gm/dL A/G ratio (test code = A/G ratio) 1.4 >1.0 bilirubin,total (test code = bilirubin,total) 0.4 mg/dL 0.0-1.2 AST/SGOT (test code = AST/SGOT) 17 U/L 15-40 Alanine aminotransferase [Enzymatic activity/volume] in Serum or Plasma (test code = 1742-6) 13 U/L 0-41 Alkaline phosphatase [Enzyma tic activity/volume] in Serum or Plasma (test code = 6768-6) 80 U/L 40-130 [facility] MississippiLip[facility] 1996 panel - Serum or [id number] 10:00:00* Test Item Value Reference Range Interpretation Comme nts cholesterol level (test code = cholesterol level) 168 mg/dL 150-200 triglycerides level (test co de = triglycerides level) 147 mg/dL <150 HDL cholesterol (test code = HDL cholesterol) 33 mg/dL >55 L LDL cholesterol direct (test code = LDL cholesterol direct) 122 mg/dL <100 H cholesterol risk ratio (test code = cholesterol risk ratio) 5.090 [facility] MississippiHemoglobin A1c [Mass/volume] in [id number] 08:34:00 * Test Item Value Reference Range Interpretation Comme nts Hemoglobin A1c in Blood (stephenie t code = 40621-4) 7.8 % 4.0-6.0 H [facility] MississippiClostridium difficile toxin A+B [Presence] in Stool 2018-07-18 11:47:00ResultsMaSinging River GulfportCBC W Auto Differential panel - [id number] 10:04:00* Test Item Value Reference Range Interpretation Comme nts white blood count (test code = white blood count) 5.5 K/uL 4.0-12.3 red blood count (test code = red blood count) 4.11 M/uL 3.80-5.80 Hemoglobin [Mass/volume] in Blood (test code = 718-7) 12.8 g/dL 11.67-17.22 hematocrit (test code = hematocrit) 38.9 % 35.0-51.0 Erythrocyte mean corpuscular volume [Entitic volume] (test code = 22537-5) 94.5 fL 78-96 Erythrocyte mean corpuscular hemoglobin [Entitic mass] (test code = 25112-0) 31.1 pg 26.8-33.4 mean corpuscular HGB conc (t est code = mean corpuscular HGB conc) 32.9 g/dL 32.3-36.7 red cell distribution width (test code = red cell distribution width) 13.1 % 11.6-15.4 Platelets [#/volume] in Bloo d (test code = 64724-1) 124 K/uL 115-328 Platelet mean volume [Entiti c volume] in Blood (test code = 95720-3) 10.2 fL 8.4-11.8 Neutrophils.band form/100 leukocytes in Blood (test code = 94620-0) 66.3 % 44.7-82.4 Lymphocytes/100 leukocytes i n Body fluid (test code = 90958-6) 21.2 % 10.0-50.0 Monocytes/100 leukocytes in Blood by Automated count (test code = 5905-5) 8.0 % 3.9-13.4 Eosinophils/100 leukocytes i n Blood by Automated count (test code = 713-8) 3.4 % 0.0-6.43 Basophils/100 leukocytes in Blood by Automated count (test code = 706-2) 1.0 % 0.0-0.72 [facility]ifferent[facility] panel, [id number] 10:04:00 NeutrophilsBandLymphocyteAtypical LymphMonocyteEosinophilBasophilMetamyelocyteNucleated Red Blood CellPlatelet EstimatePlatelet MorphologyPoikilocytosisStomatocyteRouleauMaSinging River GulfportComprehensive metabolic 2000 panel - Serum or [id number] 10:04:00* Test Item Value Reference Range Interpretation Comme nts Glucose [Mass/volume] in Ser um or Plasma (test code = 2345-7) 139 mg/dL 82-115 H Urea nitrogen [Mass/volume] in Serum or Plasma (test code = 3094-0) 18 mg/dL 8-23 Osmolality of Serum or Plasm a (test code = 2692-2) 287 280-300 creatinine (test code = creatinine) 1.4 mg/dL 0.70-1.20 H glomerular filtration rate ( test code = glomerular filtration rate) 48.89 L Urea nitrogen/Creatinine [Ma ss Ratio] in Serum or Plasma (test code = 3097-3) 12.9 12-20 sodium level (test code = so dium level) 142 mmol/L 135-145 potassium level (test code = potassium level) 4.5 mmol/L 3.5-5.2 chloride level (test code = chloride level) 108 mmol/L 98-108 CO2 (test code = CO2) 23 mmol/L 21-32 anion gap (test code = anion gap) 15.5 mEq/L 12-20 calcium level (test code = c alcium level) 10.0 mg/dL 8.8-10.2 total protein (test code = t otal protein) 6.9 g/dL 6.6-8.7 albumin (test code = albumin) 4.3 g/dL 3.5-5.2 globulin (test code = globulin) 2.6 gm/dL A/G ratio (test code = A/G ratio) 1.7 >1.0 bilirubin,total (test code = bilirubin,total) 0.4 mg/dL 0.0-1.2 AST/SGOT (test code = AST/SGOT) 13 U/L 15-40 L Alanine aminotransferase [Enzymatic activity/volume] in Serum or Plasma (test code = 1742-6) 18 U/L 0-41 Alkaline phosphatase [Enzyma tic activity/volume] in Serum or Plasma (test code = 6768-6) 73 U/L 40-130 [facility] MississippiHemoglobin A1c [Mass/volume] in [id number] 10:04:00 * Test Item Value Reference Range Interpretation Comme nts Hemoglobin A1c in Blood (stephenie t code = 04129-4) 6.1 % 4.0-6.0 H [facility]
[2023-10-27] MEDS ORDERED: MORPHINE 2 MG/ML SYR ONE (22:00)
[2023-10-27] MEDS ORDERED: ONDANSETRON 4 MG/2 ML VIAL ONE (22:00)
[2023-10-27] MEDS ORDERED: FAMOTIDINE 20 MG/2 ML VIAL IV ONE (22:01)
[2023-10-27] MEDS ORDERED: NA CHLORIDE 0.9% 2,000 ML ONE (22:01)
[2023-10-27 22:19] LABS: Absolute Eosinophils 0.1 K/uL (0-0.5); Absolute Lymphocytes (CBC) 1.2 K/uL (0.7-4.9); Absolute Monocytes 0.5 K/uL (0.1-1.3); Absolute Neutrophil 3.6 K/uL (1.8-8.0); Basophils % 0.5 % (0-1.3); Eosinophils % 1.7 % (0-4.4); Hematocrit 38.5 % (39.6-49.0); Hemoglobin 13.1 g/dL (13.6-17.9); Lymphocytes % 22.8 % (15.3-44.8); MCH 31.1 pg (27.0-35.0); MCHC 34.1 g/dL (32.0-36.0); MCV 91.3 fL (80-100); MPV 9.7 fL (7.6-11.3); Monocytes % 8.9 % (3.3-12.3); Neutrophils % 66.1 % (41.7-73.7); Platelets 117 thou/uL (152-406); RBC Red Blood Cell Count 4.21 M/uL (4.33-5.43); Red Cell Distribution Width 14.9 % (12.1-15.2)
[2023-10-27 22:33] LABS: ALT/SGPT 102 U/L (16-61); AST/SGOT 36 U/L (15-37); Albumin 3.2 g/dL (3.4-5.0); Albumin/Globulin Ratio 1.2 (1.1-1.8); Alkaline Phosphatase 117 U/L (45-117); Anion Gap 6.4 mEq/L (5.0-15.0); BUN Blood Urea Nitrogen 26 mg/dL (7-18); Bicarbonate 29 mEq/L (21-32); Bilirubin Total 0.6 mg/dL (0.2-1.0); Globulin 2.7 g/dL (2.3-3.5); Glomerular Filtration Rate 46 ml/min (=/>90); Glucose Level 237 mg/dL (74-106); Lipase 30 U/L (13-75); NT PRO-BNP 231 pg/mL (<450); Potassium 4.4 mEq/L (3.5-5.1); Protein, Total 5.9 g/dL (6.4-8.2); Sodium Level 142 mEq/L (136-145); Troponin High Sensitivity 22.9 pg/mL (<58.9)
[2023-10-27 22:35] LABS: C-Reactive Protein < 2.90 mg/L (<3.00)
--- NOTE | 2023-10-28 00:54 | ER ---
Nurse's Notes [facility] Name: Wade Barraza Age: 83 yrs Sex: Male : 1940 Arrival Date: 10/27/2023 Time: 21:28 Bed 6 Private MD: Diagnosis: Noninfective gastroenteritis and colitis, unspecified;Balance disorder, unsteady gait, profuse diarrhea, moderate dehydration, Presentation: 10/26 21:43 Chief complaint: Patient states: having diarrhea for a couple of days now \T\ loss of rg5 appetite. Coronavirus screen: Vaccine status: Patient reports receiving the 1st dose of the Covid vaccine. Ebola Screen: Patient negative for fever greater than or equal to 101.5 degrees Fahrenheit, and additional compatible Ebola Virus Disease symptoms Patient denies travel to an Ebola-affected area in the 21 days before illness onset. Initial Sepsis Screen: Does the patient meet any 2 criteria? No. Patient's initial sepsis screen is negative. Does the patient have a suspected source of infection? No. Patient's initial sepsis screen is negative. Risk Assessment: Do you want to hurt yourself or someone else? Patient reports no desire to harm self or others. Onset of symptoms was October 25, 2023. 21:43 Method Of Arrival: EMS: [facility] rg5 21:43 Acuity: ISSAC 3 rg5 Triage Assessment: 21:53 General: Appears in no apparent distress. comfortable, Behavior is calm, cooperative, rg5 appropriate for age. Pain: Denies pain. EENT: No deficits noted. Reports decreased hearing. Neuro: No deficits noted. Cardiovascular: Patient's skin is warm and dry. Rhythm is sinus bradycardia Chest pain is denied. Respiratory: Airway is patent Breath sounds are clear bilaterally. GI: Abd is soft and non tender X 4 quads. Reports diarrhea. : No signs and/or symptoms were reported regarding the genitourinary system. Derm: No signs and/or symptoms reported regarding the dermatologic system. Musculoskeletal: No signs and/or symptoms reported regarding the musculoskeletal system. Historical: - Allergies: 21:52 No Known Allergies; rg5 - Immunization history:: Adult Immunizations . - Infectious Disease History:: Denies. - Social history:: Smoking status: Patient denies any tobacco usage or history of. - Family history:: not pertinent. Screenin:19 [facility] ED Fall Risk Assessment (Adult) History of falling in the last 3 months, rg5 including since admission Yes- physiologic fall (2 pts) Confusion or Disorientation No (0 pts) Intoxicated or Sedated No (0 pts) Impaired Gait No (0 pts) Mobility Assist Device Used Yes (1 pt) Altered Elimination No (0 pt) Score/Fall Risk Level 3 or more points = High Risk Oriented to surroundings, Maintained a safe environment, Educated pt \T\ family on fall prevention, incl call for assistance when getting out of bed, Provided non-skid footwear, Hourly rounding (assess needs \T\ fall precautionary measures) done. Abuse screen: Denies threats or abuse. Nutritional screening: No deficits noted. Tuberculosis screening: No symptoms or risk factors identified. Assessment: 22:17 General: Appears in no apparent distress. comfortable. rg5 22:17 Pain: Denies pain. Neuro: Reports dizziness. Cardiovascular: Rhythm is sinus rg5 bradycardia. Respiratory: Airway is patent. GI: Abdomen is flat, Abd is soft and non tender Reports diarrhea. : No signs and/or symptoms were reported regarding the genitourinary system. EENT: Reports decreased hearing. Derm: No signs and/or symptoms reported regarding the dermatologic system. Musculoskeletal: No signs and/or symptoms reported regarding the musculoskeletal system. 23:52 Reassessment: Patient and/or family updated on plan of care and expected duration. Pain rg5 level reassessed. Patient is alert, oriented x 3, equal unlabored respirations, skin warm/dry/pink. 10/27 03:13 Reassessment: Patient and/or family updated on plan of care and expected duration. Pain rg5 level reassessed. Patient is alert, oriented x 3, equal unlabored respirations, skin warm/dry/pink. Patient denies pain at this time. Neuro: Reports dizziness. Vital Signs: 10/26 21:43 BP 144 / 64; Pulse 47; Resp 18; Temp 97.9; Pulse Ox 99% on R/A; Weight 80.29 kg (M); rg5 Height 5 ft. 8 in. (R); Pain 0/10; 21:56 BP 144 / 64; Pulse 47; Resp 18; Temp 97.9; Pulse Ox 99% on R/A; Pain 0/10; rg5 23:52 BP 167 / 72; Pulse 44; Resp 19; Pulse Ox 98% ; Pain 0/10; rg5 10/27 01:22 BP 149 / 50; Pulse 44; Resp 18; Temp 98; Pulse Ox 98% on R/A; Pain 0/10; rg5 01:29 BP 149 / 50; Pulse 44; Resp 18; Temp 98; Pulse Ox 98% ; Pain 0/10; rg5 03:01 BP 148 / 73; Pulse 44; Resp 18; Temp 97.9; Pulse Ox 96% on R/A; Pain 0/10; rg5 10/26 21:43 Body Mass Index 26.91 (80.29 kg, 172.72 cm) rg5 10/26 21:43 Pain Scale: Adult rg5 21:56 Pain Scale: Adult rg5 23:52 Pain Scale: Adult rg5 10/27 01:22 Pain Scale: Adult rg5 01:29 Pain Scale: Adult rg5 03:01 Pain Scale: Adult rg5 Vitals: 01:29 Cardiac Rhythm Assessment Sinus bianca. rg5 [place] Coma Score: 10/26 23:52 Eye Response: spontaneous(4). Motor Response: obeys commands(6). Verbal Response: rg5 oriented(5). Total: 15. 10/27 00:30 Eye Response: spontaneous(4). Motor Response: obeys commands(6). Verbal Response: sp4 oriented(5). Total: 15. 01:29 Eye Response: spontaneous(4). Motor Response: obeys commands(6). Verbal Response: rg5 oriented(5). Total: 15. ED Course: 10/26 21:42 Patient arrived in ED. ty 21:43 Mauri Posey MD is Attending Physician. sp4 21:43 Eh Ruiz RN is Primary Nurse. rg5 21:51 Triage completed. rg5 21:56 Arm band placed on right wrist. rg5 22:19 Patient has correct armband on for positive identification. Fall risk band placed. Side rg5 rails up X2. Adult w/ patient. Provided Education on:. 22:19 Inserted saline lock: 20 gauge in right antecubital area, using aseptic technique. rg5 23:51 CT Head C Spine In Process Unspecified. EDMS 23:51 CT Chest, Abdomen, Pelvis - W/Contrast In Process Unspecified. EDMS 0618 00:52 Agustín Le MD is Hospitalizing Provider. sp4 03:13 No provider procedures requiring assistance completed. Maintain EMS IV. Flushed right rg5 with 5 ml normal saline. 03:18 Patient admitted, IV remains in place. rg5 Administered Medications: 10/26 22:13 Drug: Famotidine IVP 20 mg IVP once; dilute with 10 mL 0.9% NaCl; give over 2 minutes rg5 Route: IVP; Site: left antecubital; 10/27 01:15 Follow up: Response: No adverse reaction 5 10/26 22:15 Drug: NS 0.9% IV 1000 ml IV at 1 bolus Per protocol; 1000 mL bolus Route: IV; Rate: 1 rg5 bolus; Site: left antecubital; 10/27 01:15 Follow up: IV Status: Completed infusion 5 10/26 22:15 Drug: Ondansetron IVP 4 mg IVP once; over 2 minutes Route: IVP; Site: left antecubital; rg5 10/27 01:16 Follow up: Response: No adverse reaction [facility] 10/26 22:15 Drug: morphine IVP or IV 2 mg IVP once over 4 mins Route: IVP; Infused Over: 4 mins; rg5 Site: left antecubital; 10/27 01:16 Follow up: Response: No adverse reaction [facility] 01:14 Drug: NS 0.9% IV 1000 ml IV at 125 ml/hr continuous Route: IV; Rate: 125 ml/hr; Site: rg5 right antecubital; Medication: 03:13 VIS not applicable for this client. rg5 Outcome: 00:54 Decision to Hospitalize by Provider. sp4 03:13 Admitted to Med/surg accompanied by nurse, room 214, with chart, rg5 03:13 Condition: stable 03:13 Demonstrated understanding of instructions, call before getting out of bed 03:40 Patient left the ED. rg5 Signatures: Dispatcher [employer] [facility] Mauri Posey MD MD sp4 Wyatt Toure Rommel, RN RN rg5
--- NOTE | 2023-10-28 00:55 | EDPHYS ---
Physician Documentation [facility] Name: Wade Barraza Age: 83 yrs Sex: Male : 1940 Arrival Date: 10/27/2023 Time: 21:28 Bed 6 Private MD: ED Physician Mauri Posey HPI: 10/26 21:43 This 83 yrs old Male presents to ER via Unassigned with complaints of Gen sp4 complaint. . 10/27 00:54 Patient is a very pleasant 83-year-old male presents with complaint of profuse diarrhea sp4 worsening gait disturbance starting several months ago markedly worsening in the last week. Reported nonbloody diarrhea. Historical: - Allergies: 10/26 21:52 No Known Allergies; rg5 - Immunization history:: Adult Immunizations . - Infectious Disease History:: Denies. - Social history:: Smoking status: Patient denies any tobacco usage or history of. - Family history:: not pertinent. ROS: 10/27 00:54 Constitutional: Negative for fever, chills, and weight loss, positive generalized sp4 weakness, unsteady gait, balance problem, positive for diarrhea and gastroenteritis All other systems are negative, Exam: 00:30 Constitutional: This is a well developed, well nourished patient who is awake, alert, sp4 and in no acute distress. Head/Face: Normocephalic, atraumatic. Eyes: Pupils equal round and reactive to light, extra-ocular motions intact. Lids and lashes normal. Conjunctiva and sclera are not injected. Cornea within normal limits. Periorbital areas with no swelling, redness, or edema. ENT: Nares patent. No nasal discharge, no septal abnormalities noted. Tympanic membranes are normal and external auditory canals are clear. Oropharynx with no redness, swelling, or masses, exudates, or evidence of obstruction, uvula midline. Mucous membranes moist. Neck: Trachea midline, no thyromegaly or masses palpated, and no cervical lymphadenopathy. Supple, full range of motion without nuchal rigidity, or vertebral point tenderness. Chest/axilla: Normal chest wall appearance and motion. Nontender with no deformity. No lesions are appreciated. Cardiovascular: Regular rate and rhythm with a normal S1 and S2. No gallops, murmurs, or rubs. Normal PMI, no JVD. No pulse deficits. Respiratory: Lungs have equal breath sounds bilaterally, clear to auscultation and percussion. No rales, rhonchi or wheezes noted. No increased work of breathing, no retractions or nasal flaring. Abdomen/GI: Soft, with normal bowel sounds. No distension or tympany. No guarding or rebound. No evidence of tenderness throughout. Back: No spinal tenderness. No costovertebral tenderness. Skin: Warm, dry with normal turgor. Normal color with no rashes, no lesions, and no evidence of cellulitis. MS/ Extremity: Pulses equal, no cyanosis. Neurovascular intact. Full, normal range of motion. Neuro: Awake and alert, GCS 15, oriented to person, place, time, and situation. Cranial nerves II-XII grossly intact. Motor strength 5/5 in all extremities. Sensory grossly intact. Psych: Awake, alert, with orientation to person, place and time. Behavior, mood, and affect are within normal limits 00:30 ECG was reviewed by the Attending Physician. Positive for sinus bradycardia at the rate of 43, EKG time 2244. Vital Signs: 10/26 21:43 BP 144 / 64; Pulse 47; Resp 18; Temp 97.9; Pulse Ox 99% on R/A; Weight 80.29 kg (M); 5 Height 5 ft. 8 in. (R); Pain 0/10; 21:56 BP 144 / 64; Pulse 47; Resp 18; Temp 97.9; Pulse Ox 99% on R/A; Pain 0/10; [facility] 23:52 BP 167 / 72; Pulse 44; Resp 19; Pulse Ox 98% ; Pain 0/10; [facility] 10/27 01:22 BP 149 / 50; Pulse 44; Resp 18; Temp 98; Pulse Ox 98% on R/A; Pain 0/10; [facility] 01:29 BP 149 / 50; Pulse 44; Resp 18; Temp 98; Pulse Ox 98% ; Pain 0/10; [facility] 03:01 BP 148 / 73; Pulse 44; Resp 18; Temp 97.9; Pulse Ox 96% on R/A; Pain 0/10; [facility] 10/26 21:43 Body Mass Index 26.91 (80.29 kg, 172.72 cm) [facility] 10/26 21:43 Pain Scale: Adult rg5 21:56 Pain Scale: Adult rg5 23:52 Pain Scale: Adult rg5 10/27 01:22 Pain Scale: Adult rg5 01:29 Pain Scale: Adult rg5 03:01 Pain Scale: Adult rg5 Junior Coma Score: 10/26 23:52 Eye Response: spontaneous(4). Motor Response: obeys commands(6). Verbal Response: rg5 oriented(5). Total: 15. 10/27 00:30 Eye Response: spontaneous(4). Motor Response: obeys commands(6). Verbal Response: sp4 oriented(5). Total: 15. 01:29 Eye Response: spontaneous(4). Motor Response: obeys commands(6). Verbal Response: rg5 oriented(5). Total: 15. MDM: 10/26 22:03 Patient medically screened. sp4 10/27 00:51 ED course: IMPRESSION: CT Chest , abdomen, pelvis 1. No acute cardiopulmonary, sp4 intra-abdominal, or pelvic disease. 2. Severe prostatomegaly impressing upon the base of the urinary bladder. Multiple dependent calculi within the urinary bladder measuring up to 0.[address] evident cystitis. 3. Left adrenal gland 1.2 cm hypodense lesion, probable benign adenoma.Recommend follow-up adrenal washout CT in 1 year 4. Small hiatal hernia. 5. Status post cholecystectomy. Electronically signed by: Man Jimenez MD 10/28/2023 12:34 AM. ED course: COMPARISON: None. FINDINGS: BRAIN: BRAIN: Old right thalamic lacunar infarct. No acute infarct. No parenchymal hemorrhage, intra-axial mass, mass effect, or midline shift. No abnormal extra-axial fluid collections. Minimal periventricular white matter hypodensities. VENTRICLES: Ventricles are normal in size and configuration. No hydrocephalus. CALVARIUM: Bone windows show no skull fracture or calvarial lesions.] PARANASAL SINUSES AND MASTOIDS: Essentially clear paranasal sinuses. Mastoid air cells are clear. CERVICAL SPINE: VERTEBRA: There is straightening of the cervical spine. A 1 to 2 mm anterolisthesis C7 upon T1. No acute fracture or subluxation. Cervical vertebra are normal in height. Craniocervical junction is intact. Severe anterior marginal osteophytes C6 and C7 and moderate anterior marginal osteophytes C4 and C5. 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 Moderate degenerative changes atlantodental interval. DISCS: Severe disc space narrowing C5-C6 and C6-C7 levels. LEVELS: From the C2-C3 through the C7-T1 levels, no critical/acute canal or foraminal stenosis. SOFT TISSUES: Paravertebral soft tissues are unremarkable. IMPRESSION: 1. No acute intracranial disease. 2. Old right thalamic lacunar infarct. 3. Minimal chronic small vessel ischemic white matter changes. 4. No acute fracture or CT evidence of traumatic injury to cervical spine. 5. Severe cervical spondylosis most pronounced at C5-C6 and C6-C7. . 00:54 Differential Diagnosis altered mental status, sepsis, flu, Balance disorder. Data sp4 reviewed: vital signs, nurses notes, EMS record, lab test result(s), EKG, radiologic studies, CT scan. Consideration of Admission/Observation Patient was admitted/placed on observation. Escalation of care including admission/observation considered. Management of patient was discussed with the following: Hospitalist: Rey RAMSEY. ED course: Patient warrants admission for further investigation. Possibly MRI of the brain, carotid Doppler, echocardiogram. also moderate IV hydration. 10/26 21:46 Order name: CBC with Diff; Complete Time: 23:42 sp4 10/26 21:46 Order name: CMP; Complete Time: 23:42 sp4 10/26 21:46 Order name: Lipase; Complete Time: 23:42 sp4 10/26 21:46 Order name: Urinalysis w/ reflexes sp4 10/26 21:47 Order name: Troponin High Sensitivity; Complete Time: 23:42 sp4 10/26 21:47 Order name: BNP; Complete Time: 23:42 sp4 10/26 21:47 Order name: CRP; Complete Time: 23:42 sp4 10/27 01:19 Order name: Urinalysis w/ reflexes EDMS 10/27 01:19 Order name: CBC with Automated Diff EDMS 10/27 01:19 Order name: CBC with Automated Diff EDMS 10/27 01:19 Order name: Comprehensive Metabolic Panel EDMS 10/27 01:19 Order name: Comprehensive Metabolic Panel EDMS 10/26 23:41 Order name: CT Head C Spine sp4 10/26 23:42 Order name: CT Chest, Abdomen, Pelvis - W/Contrast sp4 10/26 21:47 Order name: EKG; Complete Time: 21:47 sp4 10/26 21:46 Order name: IV Saline Lock; Complete Time: 22:23 sp4 10/26 21:46 Order name: Labs collected and sent; Complete Time: 22:36 sp4 10/26 21:47 Order name: EKG - Nurse/Tech; Complete Time: 23:01 sp4 EC:30 Rate is 43 beats/min. Rhythm is regular, Sinus bradycardia. QRS [place] is Normal. NM sp4 interval is normal. QRS interval is normal. QT interval is normal. No Q waves. T waves are Normal. No ST changes noted. Clinical impression: No evidence of ischemia. Interpreted by me. Reviewed by me. Administered Medications: 10/26 22:13 Drug: Famotidine IVP 20 mg IVP once; dilute with 10 mL 0.9% NaCl; give over 2 minutes rg5 Route: IVP; Site: left antecubital; 10/27 01:15 Follow up: Response: No adverse reaction [facility] 10/26 22:15 Drug: NS 0.9% IV 1000 ml IV at 1 bolus Per protocol; 1000 mL bolus Route: IV; Rate: 1 rg5 bolus; Site: left antecubital; 10/27 01:15 Follow up: IV Status: Completed infusion [facility] 10/26 22:15 Drug: Ondansetron IVP 4 mg IVP once; over 2 minutes Route: IVP; Site: left antecubital; 5 10/27 01:16 Follow up: Response: No adverse reaction [facility] 10/26 22:15 Drug: morphine IVP or IV 2 mg IVP once over 4 mins Route: IVP; Infused Over: 4 mins; rg5 Site: left antecubital; 10/27 01:16 Follow up: Response: No adverse reaction [facility] 01:14 Drug: NS 0.9% IV 1000 ml IV at 125 ml/hr continuous Route: IV; Rate: 125 ml/hr; Site: rg5 right antecubital; Disposition Summary: 10/28/23 00:54 Hospitalization Ordered Notes: Hospitalization Status: Inpatient Admission sp4 Provider: Agustín Le [facility] sp4 Condition: Stable sp4 Problem: new sp4 Symptoms: have improved sp4 Bed/Room Type: Standard sp4 Room Assignment: 214(10/28/23 02:28) ty Diagnosis - Noninfective gastroenteritis and colitis, unspecified sp4 - Balance disorder, unsteady gait, profuse diarrhea, moderate dehydration, sp4 Forms: - Medication Reconciliation Form sp4 - SBAR form sp4 - Leadership Thank You Letter sp4 Signatures: Dispatcher [employer] [facility] Mauri Posey MD MD sp4 Wyatt Toure Rommel RN RN rg5 Corrections: (The following items were deleted from the chart) 10/26 23:50 21:47 Abdomen Pelvis W Con+CT.RAD.BRZ ordered. [facility] 10/27 02:28 00:54 sp4 ty
[2023-10-28] MEDS ORDERED: ONDANSETRON 4 MG/2 ML VIAL IV PRN (01:14)
[2023-10-28] MEDS ORDERED: ACETAMINOPHEN 325 MG TABLET PO PRN (01:14)
--- NOTE | 2023-10-28 01:19 | P.HP ---
Certification for Inpatient Patient admitted to: Inpatient With expected LOS: >2 Midnights Practitioner: I am a practitioner with admitting privileges, knowledge of patient current condition, hospital course, and medical plan of care. Services: Services provided to patient in accordance with Admission requirements found in Title 42 Section 412.3 of the Code of Federal Regulations Patient History Date of Service: 10/28/23 Reason for admission: Generalised weakness History of Present Illness: 83-year-old male with past medical history of diabetes, hypertension, hyp erlipidemia who presented to the ER with generalized weakness which has been progressively worsening over the last 2 days associated with nausea vomiting and diarrhea. Patient complains of profuse diarrhea and has been complaining of generalized weakness and lethargy and difficult to ambulate. No recent travel. No sick contacts. No fever or chills. Denies any blood in the stool. Denies any chest pain or shortness of breath. Patient was assessed in the ER and was found to have acute kidney injury and dehydration and was admitted for further management. 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 Also severe cervical spondylosis. Allergies Penicillins Allergy (Verified 10/28/23 04:04) Had a shot in leg then could not use that leg for a while. Home medications list reviewed: Yes Home Medications: Finasteride [Proscar*] 5 mg PO DAILY 07/20/14 Metformin HCl [Glucophage*] 500 mg PO BIDWM 08/07/17 Pantoprazole [Protonix Tab*] 40 mg PO DAILY 08/07/17 lisinopriL [Prinivil*] 10 mg PO GRHOK2LY 08/07/17 - Past Medical/Surgical History Diabetic: Yes Past Medical History: Reviewed- Non-Contributory -: DM -: HTN -: SAMISH -: Skin cancer -: Fx of abiodun wrist Past Surgical History: Reviewed- Non-Contributory -: appendectomy -: hernia repair - Family History Family History: Reviewed- Non-Contributory - Family History Father -: Heart disease Mother -: Diabetes, Cancer - Social History Smoking Status: Never smoker Alcohol use: No CD- Drugs: No Caffeine use: Yes Review of Systems 10-point ROS is otherwise unremarkable Physical Examination - Vital Signs Temperature: 98.1 F Blood Pressure: 172/68 Pulse: 42 Respirations: 18 Pulse Ox (%): 98 - Physical Exam General: Alert, In no apparent distress, Oriented x3, Cooperative HEENT: Atraumatic, Normocephalic Neck: Supple, 2+ carotid pulse no bruit Respiratory: Clear to auscultation bilaterally, Normal air movement Cardiovascular: No edema, Other (Bradycardic , ) Capillary refill: <2 Seconds Gastrointestinal: Soft and benign, W/out hepatosplenomegaly, No ascites, No tenderness Musculoskeletal: No clubbing, No swelling Integumentary: No rashes, No breakdown Neurological: Normal affect, Abnormal gait, Abnormal strength Lymphatics: No axilla or inguinal lymphadenopathy - Studies Laboratory Data (last 24 hrs) 10/27/23 10/27/23 21:54 21:54 WBC 5.40 Hgb 13.1 L Hct 38.5 L Plt Count 117 L Sodium 142 Potassium 4.4 BUN 26 H Creatinine 1.47 H Glucose 237 H Total Bilirubin 0.6 AST 36 ALT 102 H Alkaline Phosphatase 117 Lipase 30 Assessment and Plan - Problems (Diagnosis) (1) Acute kidney injury Current Visit: Yes Status: Acute Plan: Acute kidney injury Renal parameters monitor Possibly prerenal IV hydration Electrolytes monitor and replace accordingly Acute gastroenteritis Started on Flagyl/Cipro States that having diarrhea for week long BPH/prostatomegaly Will get a PSS level Continue home medications of finasteride Difficulty in walking History of CVA CT consistent with old lacunar infarct PT OT evaluation Continue aspirin and statin Sinus bradycardia Patient noted to have heart rate of 40s Increased lethargy noted Will get a TSH level and cortisol level Cardiology evaluation Will get an echocardiogram Hypertension Antihypertensives titrated Continue home medications and titrate as needed Hyperlipidemia Continue statin Diabetes Insulin sliding scale Accu-Chek before every meal and at bedtime Anemia of chronic disease Monitor H&H closely GI/DVT prophylaxis Advanced directive full code Discharge Plan: Home Plan to discharge in: 48 Hours - Advance Directives Does patient have a Living Will: No Does patient have a Durable POA for Healthcare: Yes - Code Status/Comfort Care Code Status: Full Code Time Spent Managing Pts Care (In Minutes): 48
[2023-10-28] MEDS: NA CHLORIDE 0.9% 1,000 ML IV SCH (02:00)
[2023-10-28 05:11] LABS: Sqamous Epithelial <5 /HPF (None Seen); Urine Bacteria 20-50 /HPF (<20); Urine Bilirubin NEGATIVE (Negative); Urine Blood Negative (Negative); Urine Clarity Extremely Turbid (Clear); Urine Color Light-Yellow (Yellow); Urine Culture Reflex Order NOT NEEDED; Urine Glucose NEGATIVE (Negative); Urine Ketones NEGATIVE (Negative); Urine Microscopic Reflex YN ORDER UMIC; Urine Mucus Slight /HPF (None Seen); Urine Nitrite NEGATIVE (Negative); Urine Protein TRACE (Negative); Urine RBC None Seen /HPF (None Seen); Urine Urobilinogen Normal (Normal)
[2023-10-28 05:12] LABS: Specific Gravity > 1.030 (1.005-1.030)
[2023-10-28] MEDS ORDERED: GLUCAGON 1 MG/VIAL IM PRN (05:54)
[2023-10-28] MEDS ORDERED: D50W 25 GM/50 ML SYRINGE IV PRN (05:54)
[2023-10-28] MEDS ORDERED: D10W 125 ML IV PRN (05:58)
[2023-10-28] MEDS: INSULIN REGULAR (HUMAN) 100 UNIT/ML SQ SCH (07:30)
[2023-10-28] MEDS: PANTOPRAZOLE 40MG TABLET PO SCH (08:42)
[2023-10-28] MEDS: FINASTERIDE 5 MG TAB PO SCH (08:43)
[2023-10-28] MEDS: METRONIDAZOLE 500mg IVPB 500 MG/100 ML BAG IV SCH (08:43)
[2023-10-28] MEDS: CEFTRIAXONE 1,000 MG in NA CHLORIDE 0.9% 50 ML IVPB SCH (08:44)
[2023-10-28 10:25] LABS: Thyroid Stimulating Hormone 4.15 uIU/mL (0.358-3.740)
[2023-10-28] MEDS: PNEUMOCOCCAL VACCINE 0.5 ML IMVAC ONE (12:00)
[2023-10-28] MEDS ORDERED: MECLIZINE HCL 12.5 MG TAB PO PRN (12:16)
--- NOTE | 2023-10-28 12:36 | RAD REPORT ---
EXAM DESCRIPTION: CT - Chest Abdomen Pelvis W Cont - 10/28/2023 7:01 am CLINICAL HISTORY: 83 years Male, falls TECHNIQUE: Helical CT axial images are obtained of the brain and cervical spine without IV contrast. Multiplanar reconstruction. This exam was performed according to our departmental dose-optimization program, which includes automated exposure control, adjustment of the mA and/or kV according to patie nt size and/or use of iterative reconstruction technique. COMPARISON: None. FINDINGS: BRAIN: BRAIN: Old right thalamic lacunar infarct. No acute infarct. No parenchymal hemorrhage, intra-axial m ass, mass effect, or midline shift. No abnormal extra-axial fluid collections. Minimal periventricula r white matter hypodensities. VENTRICLES: Ventricles are normal in size and configuration. No hydrocephalus. CALVARIUM: Bone windows show no skull fracture or calvarial lesions. PARANASAL SINUSES AND MASTOIDS: Essentially clear paranasal sinuses. Mastoid air cells are clear. CERVICAL SPINE: VERTEBRA: There is straightening of the cervical spine. A 1 to 2 mm anterolisthesis C7 upon T1. No ac ilene fracture or subluxation. Cervical vertebra are normal in height. Craniocervical junction is intac t. Severe anterior marginal osteophytes C6 and C7 and moderate anterior marginal osteophytes C4 an d C5. 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 Moderate degenerative c hanges atlantodental interval. DISCS: Severe disc space narrowing C5-C6 and C6-C7 levels. LEVELS: From the C2-C3 through the C7-T1 levels, no critical/acute canal or foraminal stenosis. SOFT TISSUES: Paravertebral soft tissues are unremarkable. IMPRESSION: 1. No acute intracranial disease. 2. Old right thalamic lacunar infarct. 3. Minimal chronic small vessel ischemic white matter changes. 4. No acute fracture or CT evidence of traumatic injury to cervical spine. 5. Severe cervical spondylosis most pronounced at C5-C6 and C6-C7. Electronically signed by: Man Jimenez MD 10/28/2023 12:39 AM CDT N Due to temporary technical issues with the PACS/Fluency reporting system, reports are being signed by the in house radiologists without review as a courtesy to insure prompt reporting. The interpreting radiologist is fully responsible for the content of the report.
--- NOTE | 2023-10-28 12:39 | RAD REPORT ---
EXAM DESCRIPTION: CT - Head C Spine Mpr Wo Con - 10/28/2023 7:00 am CLINICAL HISTORY: 83 years Male, falls TECHNIQUE: Helical CT axial images are obtained of the brain and cervical spine without IV contrast. Multiplanar reconstruction. This exam was performed according to our departmental dose-optimization program, which includes automated exposure control, adjustment of the mA and/or kV according to patie nt size and/or use of iterative reconstruction technique. COMPARISON: None. FINDINGS: BRAIN: BRAIN: Old right thalamic lacunar infarct. No acute infarct. No parenchymal hemorrhage, intra-axial m ass, mass effect, or midline shift. No abnormal extra-axial fluid collections. Minimal periventricula r white matter hypodensities. VENTRICLES: Ventricles are normal in size and configuration. No hydrocephalus. CALVARIUM: Bone windows show no skull fracture or calvarial lesions. PARANASAL SINUSES AND MASTOIDS: Essentially clear paranasal sinuses. Mastoid air cells are clear. CERVICAL SPINE: VERTEBRA: There is straightening of the cervical spine. A 1 to 2 mm anterolisthesis C7 upon T1. No ac [place] fracture or subluxation. Cervical vertebra are normal in height. Craniocervical junction is intac t. Severe anterior marginal osteophytes C6 and C7 and moderate anterior marginal osteophytes C4 an d C5. 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 Moderate degenerative c hanges atlantodental interval. DISCS: Severe disc space narrowing C5-C6 and C6-C7 levels. LEVELS: From the C2-C3 through the C7-T1 levels, no critical/acute canal or foraminal stenosis. SOFT TISSUES: Paravertebral soft tissues are unremarkable. IMPRESSION: 1. No acute intracranial disease. 2. Old right thalamic lacunar infarct. 3. Minimal chronic small vessel ischemic white matter changes. 4. No acute fracture or CT evidence of traumatic injury to cervical spine. 5. Severe cervical spondylosis most pronounced at C5-C6 and C6-C7. Electronically signed by: Man Jimenez MD 10/28/2023 12:39 AM CDT N Due to temporary technical issues with the PACS/Fluency reporting system, reports are being signed by the in house radiologists without review as a courtesy to insure prompt reporting. The interpreting radiologist is fully responsible for the content of the report.
--- NOTE | 2023-10-28 14:14 | EKG ---
Test Date: 2023-10-27 Test Time: 22:44:59 [employer]: [employer] MEASUREMENT RESULTS: Intervals: Rate: 43 [place]: 176 QRSD: 84 QT: 462 QTc: 390 [place]: P: 60 [place]: 176 QRS: 58 T: 35 INTERPRETIVE STATEMENTS: Marked sinus bradycardia Abnormal ECG Compared to ECG 08/01/2014 16:19:19 Sinus rhythm no longer present T-wave abnormality no longer present Electronically Signed On 10-28-23 14:11:16 CDT by Gabe Ayers
--- NOTE | 2023-10-28 14:50 | RAD REPORT ---
EXAM DESCRIPTION: MRI - Brain Wo Cont - 10/28/2023 2:42 pm CLINICAL HISTORY: dizziness. Headache, drowsiness, dizziness, loss of balance COMPARISON: No comparisons TECHNIQUE: Multi-sequence, multiplanar MR imaging of the brain was performed without contrast. FINDINGS: No intracranial hemorrhage, hydrocephalus or extra-axial fluid collections.Mild generalize d brain atrophy mild periventricular and deep white matter chronic microvascular ischemic changes. No edema or shift of midline structures. No findings to suspect brain mass. DWI is negative for acute C VA. Midline structures are normally formed. Mastoid air cells and paranasal sinuses are clear. IMPRESSION: Negative for acute CVA or other acute intracranial process.
--- NOTE | 2023-10-28 19:31 | CON ---
Date of Consultation: 10/28/2023 Reason For Consultation: Bradycardia. History Of Present Illness: 83-year-old male, history of diabetes, hypertension, dyslipidemia, prese nted to the emergency room with generalized weakness, some nausea, vomiting, and extensive diarrhea, profound. Very weak and his heart rate is on the slow side, he is dizzy, but he has been having diar neris and his blood pressure has been running low. Past Medical History: Diabetes, hypertension, dyslipidemia. Medications: Refer to reconciliation sheet for detailed list. Medications were reviewed. Allergies: PENICILLIN. Family History: No premature coronary artery disease or cancer. Social History: He does not smoke or drink. Does not use any drugs. Review of Systems: All systems were reviewed and they were negative except as mentioned in the HPI. Past Surgical History: Appendectomy and hernia repair. Physical Examination: Vital Signs: Reviewed. Head and Neck: Pupils are equal, reactive to light. Intact eye movements. No JVD. No cervical lym phadenopathy. Neck is supple. Thyroid is not enlarged. Lungs: Clear to auscultation bilaterally. No rhonchi, wheezing, or crackles. No accessory muscle u se. Heart: Regular rate and rhythm. Bradycardic. No extra sound. Abdomen: Soft, nontender. Bowel sounds positive. No organomegaly. No masses or hernia. No rigidi ty or rebound. Extremities: No edema, clubbing, or cyanosis. Intact pulses. Skin: No rash. No nodule. Neurologic: Alert, awake, oriented x3. No acute focal deficits appreciated. Investigations: BUN 26, creatinine 1.47, and the troponin is negative. NT-proBNP is 238 and hemoglo bin is 15.1. Assessment And Recommendations: 1.Sinus bradycardia. I reviewed his EKG. Sinus bradycardia rate in the 40s. Monitor him on teleme try. Obtain echocardiogram and once his diarrhea is better, the patient is to be put on the treadmil l for a routine stress test to see his heart rate response to activities. If his heart rate responds very well to exercise and activities, then we will observe. Otherwise, we will plan for EP evaluati on if his heart rate fails to respond to the demand. 2.Acute renal failure due to dehydration from diarrhea. I recommend IV fluid management, re-evaluat e. 3.Aggressive diarrhea, on metronidazole and ceftriaxone. 4.Hypertension. Blood pressure is elevated. Resume his home medications and adjust as needed. SR/MODL Voice ID: [id number] Report ID: [id number]
[2023-10-29 03:26] LABS: Absolute Eosinophils 0.2 K/uL (0-0.5); Absolute Lymphocytes (CBC) 1.5 K/uL (0.7-4.9); Absolute Monocytes 0.5 K/uL (0.1-1.3); Absolute Neutrophil 3.4 K/uL (1.8-8.0); Basophils % 0.6 % (0-1.3); Hematocrit 36.2 % (39.6-49.0); Hemoglobin 12.2 g/dL (13.6-17.9); Lymphocytes % 26.3 % (15.3-44.8); MCH 30.7 pg (27.0-35.0); MCHC 33.7 g/dL (32.0-36.0); MCV 91.1 fL (80-100); MPV 9.9 fL (7.6-11.3); Monocytes % 9.2 % (3.3-12.3); Neutrophils % 60.9 % (41.7-73.7); Platelets 105 thou/uL (152-406); RBC Red Blood Cell Count 3.97 M/uL (4.33-5.43); Red Cell Distribution Width 14.7 % (12.1-15.2)
[2023-10-29 03:37] LABS: Albumin 2.9 g/dL (3.4-5.0); Albumin/Globulin Ratio 1.2 (1.1-1.8); Anion Gap 6.6 mEq/L (5.0-15.0); Bilirubin Total 0.4 mg/dL (0.2-1.0); Globulin 2.5 g/dL (2.3-3.5); Potassium 4.6 mEq/L (3.5-5.1); Protein, Total 5.4 g/dL (6.4-8.2)
--- NOTE | 2023-10-29 09:26 | P.PN ---
Subjective Date of Service: 10/29/23 Chief Complaint: Generalised weakness Subjective: Improving <Gloria Majoramira [place] - Last Filed: 10/29/23 09:26> Date of Service: 10/29/23 <Eli Valentin Morales - Last Filed: 10/29/23 11:07> Physical Examination - Vital Signs Temperature: 97.2 F Blood Pressure: 153/80 Pulse: 43 Respirations: 16 Pulse Ox (%): 98 <Saranya [place] - Last Filed: 10/29/23 09:26> Assessment And Plan - Plan 83-year-old male with past medical history of diabetes, hypertension, hyperlipidemia who presented to the ER with generalized weakness which has been progressively worsening over the last 2 days associated with nausea vomiting and diarrhea. Patient complains of profuse diarrhea and has been complaining of generalized weakness and lethargy and difficult to ambulate. No recent travel. No sick contacts. No fever or chills. Denies any blood in the stool. Denies any chest pain or shortness of breath. Patient was assessed in the ER and was found to have acute kidney injury and dehydration and was admitted for further management. 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 Also severe cervical spondylosis. Problems (Diagnosis) (1) Acute kidney injury Current Visit: Yes Status: Acute Plan: Acute kidney injury Renal parameters monitor Possibly prerenal IV hydration Electrolytes monitor and replace accordingly 10/28 improved Acute gastroenteritis Started on Flagyl/Cipro States that having diarrhea for week long 10/28 improved will have stress test Friday BPH/prostatomegaly Will get a PSA level Continue home medications of finasteride Difficulty in walking History of CVA CT consistent with old lacunar infarct PT OT evaluation Continue aspirin and statin Sinus bradycardia Patient noted to have heart rate of 40s Increased lethargy noted Will get a TSH level and cortisol level Cardiology evaluation - Dr. Ayers following Will get an echocardiogram Hypertension Lisinopril 10mg po daily Hyperlipidemia Continue statin Diabetes Insulin sliding scale Accu-Chek before every meal and at bedtime Anemia of chronic disease Monitor H&H closely GI/DVT prophylaxis Advanced directive full code Discharge Plan: Home Plan to discharge in: 48 Hours <Saranya Major - Last Filed: 10/29/23 09:26> - Plan Pt seen and examined. I agree with the note by the D[employer] P[employer]CH OPERATOR. Pt denies any diarrhea. Will r/o C diff. Will continue meclizine. Consulted PT for smiley maneuver. Pt will need to see ENT in clinic. MRI brain is unremarkable. Continue home meds for other chronic medical problems. <Eli Valentin - Last Filed: 10/29/23 11:07>
[2023-10-29] MEDS: lisinopriL 10 MG TAB PO SCH (10:29)
--- NOTE | 2023-10-29 14:04 | ECHO ---
HEIGHT: 5 ft 8 in WEIGHT: 175 lb 3.2 oz DATE OF STUDY: 10/29/[address]: Abimael Le DO 2-DIMENSIONAL: YES M.MODE: YES DOPPLER: YES COLOR FLOW: YES TDS: YES PORTABLE: YES DEFINITY: BUBBLE STUDY: DIAGNOSIS: BRADYCARDIA CARDIAC HISTORY: CATHERIZATION: NO SURGERY: NO PROSTHETIC VALVE: NO PACEMAKER: NO MEASUREMENTS (cm) DIASTOLIC (NORMALS) SYSTOLIC (NORMALS) IVSd 1.2 (0.6-1.2) LA Diam 2.8 (1.9-4.0) LVEF 55-60% LVIDd 4.5 (3.5-5.7) LVIDs 3.0 (2.0-3.5) %FS 33% LVPWd 1.2 (0.6-1.2) Ao Diam 2.9 (2.0-3.7) 2 DIMENSIONAL ASSESSMENT: RIGHT ATRIUM: NORMAL LEFT ATRIUM: NORMAL RIGHT VENTRICLE: NORMAL LEFT VENTRICLE: MILD LEFT VENTRICULAR HYPERTROPHY TRICUSPID VALVE: MILD TRICUSPID REGURGITATION MITRAL VALVE: TRACE MITRAL REGURGITATION PULMONIC VALVE: NORMAL AORTIC VALVE: NORMAL PERICARDIAL EFFUSION: NONE AORTIC ROOT: NORMAL LEFT VENTRICULAR WALL MOTION: NORMAL DOPPLER/COLOR FLOW: GRADE II DIASTOLIC DYSFUNCTION COMMENTS: 1. NORMAL LEFT VENTRICULAR SYSTOLIC FUCNTION, EJECTION FRACTION 55-60%, NORMAL WALL MOTION 2. GRADE II DIASTOLIC DYSFUNCTION 3. MILD TRICUSPID REGURGITATION TECHNOLOGIST: RACHELL CHAMBERLAIN
[2023-10-29] MEDS: NA CHLORIDE 0.9% 1,000 ML IV SCH (16:29)
--- NOTE | 2023-10-29 18:08 | P.PN ---
Subjective Date of Service: 10/29/23 Chief Complaint: Generalised weakness Subjective: No new changes, No C/O voiced, Tolerating diet, Ambulating, Improving Review of Systems 10-point ROS is otherwise unremarkable Physical Examination - Vital Signs Temperature: 98 F Blood Pressure: 140/57 Pulse: 48 Respirations: 17 Pulse Ox (%): 99 - Physical Exam General: Alert, In no apparent distress HEENT: Atraumatic, PERRLA, EOMI Neck: Supple, JVD not distended Respiratory: Clear to auscultation bilaterally, Normal air movement Cardiovascular: Regular rate/rhythm, Normal S1 S2 Gastrointestinal: Normal bowel sounds, No tenderness Musculoskeletal: No tenderness Integumentary: No rashes Neurological: Normal speech, Normal tone, Normal affect Lymphatics: No axilla or inguinal lymphadenopathy - Studies Medications List Reviewed: Yes Assessment And Plan - Current Problems (Diagnosis) (1) Bradycardia Current Visit: Yes Status: Acute Plan: Telemetery reviewed and shows sinus bradycardia with no pauses. Patient echo shows normal EF. will need outpatient event monitor and exercise stress test No further inpatient cardiac work up needed. (2) HTN (hypertension) Current Visit: Yes Status: Acute Plan: Continue Losartan. (3) Acute kidney injury Current Visit: Yes Status: Acute Plan: Improving with hydration.
[2023-10-30 03:52] VITALS: BMI 27.1
[2023-10-30 04:13] LABS: Absolute Eosinophils 0.2 K/uL (0-0.5); Absolute Lymphocytes (CBC) 1.4 K/uL (0.7-4.9); Absolute Monocytes 0.6 K/uL (0.1-1.3); Absolute Neutrophil 4.6 K/uL (1.8-8.0); Basophils % 0.5 % (0-1.3); Hemoglobin 11.7 g/dL (13.6-17.9); Lymphocytes % 20.2 % (15.3-44.8); MCH 30.9 pg (27.0-35.0); MCHC 33.5 g/dL (32.0-36.0); MCV 92.1 fL (80-100); MPV 10.3 fL (7.6-11.3); Monocytes % 9.2 % (3.3-12.3); Neutrophils % 67.1 % (41.7-73.7); Platelets 110 thou/uL (152-406); Red Cell Distribution Width 14.6 % (12.1-15.2)
[2023-10-30 04:30] LABS: Albumin/Globulin Ratio 1.3 (1.1-1.8); Anion Gap 9.4 mEq/L (5.0-15.0); Bilirubin Total 0.5 mg/dL (0.2-1.0); Globulin 2.4 g/dL (2.3-3.5); Magnesium 2.1 mg/dL (1.6-2.4); Phosphorus 2.3 mg/dL (2.5-4.9); Potassium 4.4 mEq/L (3.5-5.1); Protein, Total 5.4 g/dL (6.4-8.2)
[2023-10-30] MEDS ORDERED: POTASS/SODIUM PHOSPHATE 1 PKT POWD.PACK PO SCH (08:00)
[2023-10-30 10:46] VITALS: O2SAT 97
--- NOTE | 2023-10-30 11:09 | P.PN ---
Subjective Date of Service: 10/30/23 Chief Complaint: Generalised weakness Subjective: No new changes, No C/O voiced, Tolerating diet, Ambulating, Improving Review of Systems 10-point ROS is otherwise unremarkable Physical Examination - Vital Signs Temperature: 98.3 F Blood Pressure: 158/75 Pulse: 49 Respirations: 14 Pulse Ox (%): 97 - Physical Exam General: Alert, In no apparent distress HEENT: Atraumatic, PERRLA, EOMI Neck: Supple, JVD not distended Respiratory: Clear to auscultation bilaterally, Normal air movement Cardiovascular: Regular rate/rhythm, Normal S1 S2 Gastrointestinal: Normal bowel sounds, No tenderness Musculoskeletal: No tenderness Integumentary: No rashes Neurological: Normal speech, Normal tone, Normal affect Lymphatics: No axilla or inguinal lymphadenopathy - Studies Medications List Reviewed: Yes Assessment And Plan - Current Problems (Diagnosis) (1) Bradycardia Current Visit: Yes Status: Acute Plan: Telemetery reviewed and shows sinus bradycardia with no pauses. Patient echo shows normal EF. will need outpatient event monitor and exercise stress test No further inpatient cardiac work up needed. (2) HTN (hypertension) Current Visit: Yes Status: Acute Plan: Continue Losartan. (3) Acute kidney injury Current Visit: Yes Status: Acute Plan: Improving with hydration.
--- NOTE | 2023-10-30 12:37 | P.DS ---
Admission Date: 10/28/23 Discharge Date: 10/30/23 Reason for Admission: Generalized weakness Consultations: Dr. Barraza Brief History of Present Illness: 83-year-old male with past medical history of diabetes, hypertension, hyperlipidemia who presented to the ER with generalized weakness which has been progressively worsening over the last 2 days associated with nausea vomiting and diarrhea. Patient complains of profuse diarrhea and has been complaining of generalized weakness and lethargy and difficult to ambulate. No recent travel. No sick contacts. No fever or chills. Denies any blood in the stool. Denies any chest pain or shortness of breath. Patient was assessed in the ER and was found to have acute kidney injury and dehydration and was admitted for further management. 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 Also severe cervical spondylosis. Hospital Course: Mr. Barraza did well over the course of his hospitalization. His kidney function improved. Diarrhea has ceased. Stool was negative for C. difficile. The patient has known prostamegaly, his PSA was greater than 9. Mr. Barraza remained bradycardic without symptoms. He was seen by cardiology. Evaluation of his rhythm was completed and they request an outpatient treadmill stress test. He should follow-up with his PCP, cardiology, and urology in 1 to 2 weeks. Home health evaluation was completed and initiated. <Saranya Major - Last Filed: 10/30/23 12:37> Admission Date: 10/28/23 Discharge Date: 10/30/23 Hospital Course: Pt seen and examined. I agree with the note by the BULL FIDDLE PLAYER. MRI brain is negative for CVA. Will continue meclizine and prn loperamide. Pt was advised to follow up with ENT for vestibular study. <Eli Valentin - Last Filed: 10/30/23 22:10> Disposition: [facility] Discharge Condition: GOOD Vital Signs/Physical Exam: Temp Pulse Resp BP Pulse Ox 98.3 F 49 L 14 158/75 H 97 10/30/23 11:09 10/30/23 11:09 10/30/23 11:09 10/30/23 11:09 10/30/23 11:09 General: Alert, In no apparent distress, Oriented x3 HEENT: Atraumatic, Normocephalic Neck: Supple Respiratory: Normal air movement Cardiovascular: No edema, Normal pulses, Regular rate/rhythm Capillary refill: <2 Seconds Gastrointestinal: Soft and benign Musculoskeletal: No clubbing, No swelling Integumentary: No rashes Neurological: Normal speech, Normal tone, Normal affect Lymphatics: No axilla or inguinal lymphadenopathy External genitalia: Deferred Rectal: Deferred Laboratory Data at Discharge: WBC 6.90 thou/uL (4.3-10.9) 10/30/23 03:41 Hgb 11.7 g/dL (13.6-17.9) L 10/30/23 03:41 Hct 35.0 % (39.6-49.0) L 10/30/23 03:41 Plt Count 110 thou/uL (152-406) L 10/30/23 03:41 Sodium 144 mEq/L (136-145) 10/30/23 03:41 Potassium 4.4 mEq/L (3.5-5.1) 10/30/23 03:41 BUN 22 mg/dL (7-18) H 10/30/23 03:41 Creatinine 1.40 mg/dL (0.70-1.30) H 10/30/23 03:41 Glucose 107 mg/dL (74-106) H 10/30/23 03:41 Phosphorus 2.3 mg/dL (2.5-4.9) L 10/30/23 03:41 Magnesium 2.1 mg/dL (1.6-2.4) 10/30/23 03:41 Total Bilirubin 0.5 mg/dL (0.2-1.0) 10/30/23 03:41 AST 11 U/L (15-37) L 10/30/23 03:41 ALT 55 U/L (16-61) 10/30/23 03:41 Alkaline Phosphatase 102 U/L (45-117) 10/30/23 03:41 Lipase 30 U/L (13-75) 10/27/23 21:54 <Major,Saranya Bay - Last Filed: 10/30/23 12:37> Vital Signs/Physical Exam: Temp Pulse Resp BP Pulse Ox 97.7 F 59 16 171/69 H 98 10/30/23 12:00 10/30/23 12:00 10/30/23 12:00 10/30/23 12:00 10/30/23 12:00 Laboratory Data at Discharge: WBC 6.90 thou/uL (4.3-10.9) 10/30/23 03:41 Hgb 11.7 g/dL (13.6-17.9) L 10/30/23 03:41 Hct 35.0 % (39.6-49.0) L 10/30/23 03:41 Plt Count 110 thou/uL (152-406) L 10/30/23 03:41 Sodium 144 mEq/L (136-145) 10/30/23 03:41 Potassium 4.4 mEq/L (3.5-5.1) 10/30/23 03:41 BUN 22 mg/dL (7-18) H 10/30/23 03:41 Creatinine 1.40 mg/dL (0.70-1.30) H 10/30/23 03:41 Glucose 107 mg/dL (74-106) H 10/30/23 03:41 Phosphorus 2.3 mg/dL (2.5-4.9) L 10/30/23 03:41 Magnesium 2.1 mg/dL (1.6-2.4) 10/30/23 03:41 Total Bilirubin 0.5 mg/dL (0.2-1.0) 10/30/23 03:41 AST 11 U/L (15-37) L 10/30/23 03:41 ALT 55 U/L (16-61) 10/30/23 03:41 Alkaline Phosphatase 102 U/L (45-117) 10/30/23 03:41 Lipase 30 U/L (13-75) 10/27/23 21:54 <Eli Valentin - Last Filed: 10/30/23 22:10> Diet: AHA Activity: Ad ken <Major,Saranya Bay - Last Filed: 10/30/23 12:37> <Eli Valentin - Last Filed: 10/30/23 22:10> Home Medications: Finasteride [Proscar*] 5 mg PO DAILY 07/20/14 Metformin HCl [Glucophage*] 500 mg PO BIDWM 08/07/17 Pantoprazole [Protonix Tab*] 40 mg PO DAILY 08/07/17 lisinopriL [Prinivil*] 10 mg PO [id number] 08/07/17 Meclizine HCl [Antivert*] 25 mg PO Q6H PRN 10 Days #30 tab 10/30/23 New Medications: Meclizine HCl [Antivert*] 25 mg PO Q6H PRN 10 Days #30 tab PRN Reason: Dizziness Physician Discharge Instructions: Mr. Barraza did well over the course of his hospitalization. His kidney function improved. Diarrhea has ceased. Stool was negative for C. difficile. The patient has known prostamegaly, his PSA was greater than 9. Mr. Barraza remained bradycardic without symptoms. He was seen by cardiology. Evaluation of his rhythm was completed and they request an outpatient treadmill stress test. He should follow-up with his PCP, cardiology, and urology in 1 to 2 weeks. Home health evaluation was completed and initiated. Continue ad ken activity. Take meclizine as needed. Follow up with Cardiology within 1 week for treadmill stress test. Follow up with PCP within 2 weeks. Okay to DC IV and DC home Please call the inpatient unit for any questions or concerns regarding hospital stay Return to the ER for worsening symptoms Followup: Anais Lawson RN [Primary Care Provider] -
[2023-10-30 14:34] VITALS: BP 171/69; TEMP 97.7
== END 2023-10-30 12:26 | disposition home health service (06) | DRG 684 ==
LOC: ER 21:28 → ERHOLD 10-28 01:14 → 2ND 10-28 02:41
PROVIDERS: ADMIT Family Medicine; ATTEND Hospitalist
DX: N17.9 Acute kidney failure, unspecified (principal); K52.9 Noninfective gastroenteritis and colitis, unspecified; E86.0 Dehydration; I10 Essential (primary) hypertension; E11.9 Type 2 diabetes mellitus without complications; D63.8 Anemia in other chronic diseases classified elsewhere; E78.5 Hyperlipidemia, unspecified; N40.0 Benign prostatic hyperplasia without lower urinary tract symptoms; M47.892 Other spondylosis, cervical region; R00.1 Bradycardia, unspecified; Z88.0 Allergy status to penicillin; Z79.84 Long term (current) use of oral hypoglycemic drugs; Z90.49 Acquired absence of other specified parts of digestive tract; Z86.73 Personal history of transient ischemic attack (TIA), and cerebral infarction without residual deficits; Z79.899 Other long term (current) drug therapy; Z85.828 Personal history of other malignant neoplasm of skin
CPT/HCPCS: 36415; 70450; 70551; 71260; 72125; 74177; 80053; 81001; 82533; 82947; 83690; 83735; 83880; 84100; 84153; 84439; 84443; 84484; 85025; 86140; 93005; 93306; 96361; 96374; 96375; 97112; 97116; 97161; 97530; 99285; J0696; J2270; J2405; J7030; Q9967